=== PATIENT | male | born 1985 | race Caucasian/White ===

== ENCOUNTER 2016-07-04 07:59 | Observation (INO) ==
[2016-07-04] MEDS ORDERED: ONDANSETRON 4 MG/2 ML VIAL IV STA (08:24)
[2016-07-04] MEDS ORDERED: SODIUM CHLORIDE 0.9% 1,000 ML IV STA (08:24)
[2016-07-04] MEDS ORDERED: HYDROmorphone 2 MG/1 ML VIAL IV PRN (08:24)
[2016-07-04] MEDS ORDERED: ONDANSETRON 4 MG/2 ML VIAL ONE ×2 (08:35→11:22)
[2016-07-04] MEDS ORDERED: HYDROmorphone 2 MG/1 ML VIAL ONE (08:35)
[2016-07-04 08:52] LABS: Basophils # 0.1 10*3/uL (0.0-0.2); Basophils % 0.3 % (0.0-0.8); Eosinophils % 0.2 % (0.00-10.9); Hematocrit 52.8 VOL% (42.0-52.0); Hemoglobin 18.8 GM/DL (14.0-18.0); Immature Granulocytes % 0.4 %; Immature Granulocytes Absolute 0.07 #; Lymphocytes # 2.9 10*3/uL (1.4-4.0); Lymphocytes % 15.8 % (21.2-54.2); Mean Corpuscular HGB Conc 35.6 GM/DL (32-36); Mean Corpuscular Hemoglobin 32 PG (27-34); Mean Corpuscular Volume 89.5 FL (87-102); Mean Platelet Volume 9.2 FL (9.6-12.0); Monocytes # 0.9 10*3/uL (0.11-0.8); Monocytes % 4.9 % (1.7-12.7); Neutrophils # 14.2 10*3/uL (1.4-7.4); Neutrophils % 78.4 % (38.7-73.9); Platelet Count 326 T/CUMM (130-400); Red Cell Distribution Width 12.5 % (9.3-17.3); White Blood Count 18.1 T/CUMM (4-12)
--- NOTE | 2016-07-04 09:11 | XRay Report ---
Referring Physician: Ariel Grewal Exam: XR abdomen 2V Date: July 04, 2016 at 9:02 AM Reason: Generalized abdominal pain Comparison: Lumbar spine x-rays January 21, 2014 Findings: There is no evidence of bowel obstruction or free air. Moderate stool is noted within the colon. Surgical clips are again seen within the right lower quadrant. The renal shadows are partially obscured, but no definite renal calculi are identified. No acute osseous process is seen. Impression: No acute abdominal process is identified. PROCEDURE INTERPRETED AT [facility] DEPARTMENT OF RADIOLOGY Final Report Signed by: Dr. Pat Fortune
[2016-07-04 09:49] LABS: Albumin 5.1 G/DL (3.4-5.0); Bilirubin,Total 0.9 MG/DL (0.2-1.0); Calcium 11.2 MG/DL (8.5-10.1); Magnesium 2.3 MG/DL (1.8-2.4); Osmolality,Calculated 290.7 MOS/KG (273-304); Total Protein 9.1 G/DL (6.4-8.3)
[2016-07-04 09:53] LABS: Apearance,Urine CLEAR (Clear); Bilirubin,Urine Negative (Negative); Blood, Urine Negative (Negative); Glucose,Urine (UA) Negative (Negative); Ketones,Urine Negative (Negative); Mucus,Urine Occasional /LPF (Occasional); Nitrite,Urine Negative (Negative); Protein,Urine 30 MG/DL; RBC,Urine 6 /HPF (0-4); Urine Color Yellow (Yellow); Urine Specific Gravity 1.013 (1.001-1.035); Urine Urobilinogen < 2.0 EU/DL (0.2-1.0); WBC,Urine 2 /HPF (0-6)
--- NOTE | 2016-07-04 10:44 | EKG Report ---
Stationary ECG Study [facility] ER Test Date: 07/04/2016 10:38:50 AM Pat Name: REY MOON Department: Room: Gender: M [employer] Lead: KELSIE : 1985 Requested by: Ariel Smith Order Number: [id number] Reading MD: NANDINI VILLALPANDO Intervals [place] Rate: 59 P: 267 ID: [id number] QRS: 129 QRSD: 115 T: 151 QT: 422 QTc: 421 Interpretive Statements JUNCTIONAL RHYTHM INCOMPLETE RIGHT BUNDLE BRANCH BLOCK RIGHT AXIS DEVIATION Electronically Signed On 07-04-16 18:15:27 FLOOR REPRESENTATIVE by NANDINI VILLALPANDO [email or web address]
--- NOTE | 2016-07-04 10:51 | CT Report ---
Referring physician: Ariel Grewal EXAM: CT abdomen and pelvis with contrast DATE: July 04, 2016 COMPARISON: CT chest, abdomen and pelvis January 02, 2014 REASON: Mid abdominal pain, nausea and vomiting TECHNIQUE: Axial images of the abdomen and pelvis were obtained after administration of 100 cc of Omnipaque 350 IV contrast. Coronal and sagittal reformatted images were also provided. Total DLP is 847.9 mGy*cm. FINDINGS: Lower thorax: There is minimal atelectasis at the lung bases. A stable 0.5 cm noncalcified nodule is seen within the right lower lobe adjacent to the major fissure on image 3. The stability suggests a benign process. ABDOMEN: Liver: Unremarkable. Gallbladder and bile ducts: The gallbladder is unremarkable. No biliary duct dilatation is present. Pancreas: Unremarkable. Spleen: The spleen is borderline prominent, measuring 13.6 cm in AP dimension. Adrenals: Unremarkable. Kidneys and ureters: No hydronephrosis or suspicious renal lesion is identified. The ureters are unremarkable as visualized. PELVIS: Bladder: The bladder is poorly distended and difficult to evaluate. Reproductive: Unremarkable as visualized. ABDOMEN AND PELVIS: Bowel: There is no evidence of bowel obstruction. There is mild diffuse gastric wall thickening at the distal stomach/gastric antrum. This could be secondary to poor distention, but other considerations include gastritis. Appendix: The appendix is not identified, but there are no secondary signs of appendicitis. There is also surgical change within the right lower quadrant which may be related to appendectomy. Vasculature: The abdominal aorta is normal in size. Peritoneum/retroperitoneum: No free air or ascites is seen. Lymph nodes: There are a few nonspecific upper normal-sized lymph nodes within the upper abdomen in the gastrohepatic region. One of these lymph nodes on image 36, series 2 measures 0.8 cm in short axis diameter, which is stable. No new suspicious adenopathy is seen. Abdominal/pelvic wall: Unremarkable. Bones: There is minimal chronic posterior wedging of the L5 vertebral body and bilateral pars interarticularis defects at L5. No acute osseous process is seen. IMPRESSION: 1. There is mild diffuse thickening of the gastric wall at the distal stomach/antrum. This could be secondary to poor distention, but gastritis is not excluded. Please correlate with clinical symptoms. 2. Borderline splenomegaly. 3. Bilateral pars interarticularis defects at L5. The CT exam was performed using one or more of the following dose reduction techniques: Automated exposure control and adjustment of the mA and/or kV according to patient size. PROCEDURE INTERPRETED AT [facility] DEPARTMENT OF RADIOLOGY Final Report Signed by: Dr. Pat Fortune
[2016-07-04] MEDS ORDERED: ACETAMINOPHEN 325 MG TABLET PO PRN (11:02)
[2016-07-04] MEDS ORDERED: ZALEPLON 5 MG CAPSULE PO PRN (11:02)
--- NOTE | 2016-07-04 11:10 | Emergency Department Note ---
Axel Martinez Meredith, am scribing for, and in the presence of, Ariel Grewal MD 08:23. Uri Martinez Phillip K, MD, personally performed the services described in this documentation, ascribed by Ana Reyna in my presence, and it is both accurate and complete . Arrival - Arrival Chief Complaint: Nausea/Vomiting/Diarrhea Stated Complaint: abd pain,n/v ED Nursing Triage Note: n/v since 1999 last night with pain in middle of abdomen. vomiting in triage. denies uti s/s. Mode of Arrival: Ambulatory Limitations: No Limitations Source: Patient, Old Records Reviewed, RN Notes Reviewed - History of Present Illness HPI Narrative: Pt is a 30 y/o white male reporting to the ED with c/o nausea and vomiting since 1999 last night. He confirms intermittent mid abdominal pain and diaphoresis but denies any fever or diarrhea. His last bowel movement was 2 days ago. Pt has a history of appendectomy. He is a current everyday smoker and drinks alcohol occasionally. Onset (ago): hour(s) Consistency: intermittent Allergies/Adverse Reactions: Allergies Allergy/AdvReac Type Severity Reaction Status Date / Time Amoxicillin [From Amoxil] Allergy Unknown/Unable Verified 07/04/16 08:12 to obtain Home Medications: Home Medications Medication Instructions Recorded Confirmed Type No Known Home Medications [No 07/04/16 07/04/16 History Known Home Medications] Review of System - Review of System 12 point system: reviewed and no additional remarkable complaints except as stated - Review of System Constitutional: Present: as per HPI, diaphoresis. Absent: fever Gastrointestinal: Present: as per HPI, abdominal pain, nausea, vomiting. Absent : diarrhea Medical,Surgical,& Family Hx - Medical History Cardio: No history of: Hypertension - Surgical History Abdominal Surgeries: Surgical HX of: Appendectomy Patient denies: Splenectomy - Family History Family History: Denies;: Additional Family History - Social History Smoking Status: Current every day smoker Frequency of Alcohol Use: Occasionally Type of Drug Use: None Exam Vital Signs: Vital Signs Temperature 97.2 F L 07/04/16 08:06 Pulse Rate 132 H 07/04/16 08:06 Respiratory Rate 24 07/04/16 08:06 Blood Pressure 171/114 07/04/16 08:06 O2 Sat by Pulse Oximetry 98 07/04/16 08:06 - General General appearance: alert, in no apparent distress - Head Head exam: Present: atraumatic, normocephalic - Eye Eye exam: Present: normal appearance, PERRL, EOMI - ENT ENT exam: Present: mucous membranes moist, normal external ear exam - Neck Neck exam: Present: full ROM, trachea midline. Absent: tenderness, meningismus , lymphadenopathy, thyromegaly - Chest Chest inspection: Present: symmetric chest wall rise. Absent: tenderness, rash - Respiratory Respiratory exam: Present: normal lung sounds bilaterally. Absent: respiratory distress - Cardiovascular Cardiovascular exam: Present: normal rhythm, tachycardia. Absent: murmur - Abdominal Exam Abdominal exam: Present: soft, hypoactive bowel sounds. Absent: distention, tenderness - Extremities Exam Extremities exam: Present: full ROM, normal capillary refill. Absent: tenderness, pedal edema, calf tenderness - Back Exam Back exam: Present: full ROM. Absent: tenderness - Neurological Exam Neurological exam: Present: alert, oriented X3, CN II-XII intact. Absent: motor sensory deficit - Psychiatric Psychiatric exam: Present: normal affect, normal mood - Skin Skin exam: Present: warm, dry, intact, normal color Course Course Narrative: Patient discussed with the hospitalist who will admit for further evaluation. Results - Labs CBC & BMP: 07/04/16 08:44 07/04/16 08:44 Lab Results: I have reviewed the patients labs Labs: Laboratory Tests 07/04/16 08:44 WBC 18.1 H RBC 5.90 H Hgb 18.8 H Hct 52.8 H Plt Count 326 MPV 9.2 L Neut % (Auto) 78.4 H Lymph % (Auto) 15.8 L Neut # (Auto) 14.2 H [place] # (Auto) 0.9 H Laboratory Tests 07/04/16 08:44 Sodium 145 Potassium 4.0 Chloride 100 Carbon Dioxide 32 Anion Gap 17.0 H BUN 15 Creatinine 1.40 H Glucose 137 H Calcium 11.2 H Total Protein 9.1 H Albumin 5.1 H Globulin 4.0 H Laboratory Tests 07/04/16 08:44 Urine pH 8.0 Ur Specific [place] 1.013 Urine Protein 30 Urine Urobilinogen < 2.0 H Urine RBC 6 Urine WBC 2 Urine Mucus Occasional - EKG EKG results: interpreted by VÍCTRO, sinus rhythm - Diagnostic Findings Procedure: Abdominal x-ray: report reviewed by me (No acute abdominal process. ) , CT Abdomen and Pelvis: report reviewed by me (1. There is mild diffuse thickening of the gastric wall at the distal stomach/antrum. This could be secondary to poor distention, but gastritis is not excluded. 2. Borderline splenomegaly. 3. Bilateral pars interarticularis defects at L5. ) Disposition Clinical Impression: Abdominal pain with vomiting, Hypercalcemia Case discussed with: patient, patient's family Disposition: Still a Patient Condition: Guarded Additional Instructions: Admitted to the hospitalist for further evaluation.
[2016-07-04] MEDS: ONDANSETRON 4 MG/2 ML VIAL IV PRN ×2 (11:25→15:43)
[2016-07-04] MEDS ORDERED: SODIUM CHLORIDE 0.9% 1,000 ML IV SCH (11:30)
--- NOTE | 2016-07-04 11:46 | Hospitalist History & Physical ---
<Erika Martinez - Last Filed: 07/04/16 11:39> Assessment and Plan - Time spent with patient Time spent with patient: Greater than 30 minutes (due to assessment, plan and doc) (1) Gastroenteritis Status: Acute Assessment and plan: admit obs NS at 125 Zofran PRN Clear liquids, advance as tolerated Current Visit: Yes (2) Abdominal pain with vomiting Status: Acute Current Visit: Yes (3) Hypercalcemia Status: Acute Current Visit: Yes History of Present Illness Chief complaint: nausea, vomiting, abd cramping History of present illness: Mr. Rodriguez is a 30 year old male who states that he began to have severe nausea and vomiting that started at 8 pm last night. He has been very nauseated and has waves of cramping abdominal pain. He states that he is not diabetic, not hypertensive. He has no chronic medical problems. He has had his appendix removed. Denies any abdominal tenderness to palpation. Last BM was Sunday and was normal. Denies any hematemesis, or melena. Denies any fever. WBC is 18k today. It is noted that his calcium is elevated at 11.2. His H/H is elevated at 18/52. BUN 15, Creat 1.4 GFR 81. Urine is negative at this time. Denies any diarrhea at this time. He will be admitted for observation for gastroenteritis. We will treat with fluids and anti-emetics. He lives at home with his and 4 children. Labs in AM. Further plan and addendum to follow by Dr. Sharlene Glaser. Home Medications Medication Instructions Recorded Confirmed Type No Known Home Medications [No 07/04/16 07/04/16 History Known Home Medications] Allergies Allergy/AdvReac Type Severity Reaction Status Date / Time Amoxicillin [From Amoxil] Allergy Unknown/Unable Verified 07/04/16 08:12 to obtain Medical,Surgical,& Family Hx - Medical History Cardio: No history of: Hypertension - Surgical History Abdominal Surgeries: Surgical HX of: Appendectomy Patient denies: Splenectomy - Family History Family History: Denies;: Additional Family History - Social History Smoking Status: Current every day smoker Frequency of Alcohol Use: Occasionally Type of Drug Use: None Marital Status: Lives With:: Spouse Functional capacity: independent ambulation - Constitutional Constitutional: Absent: chills, fever(s), weakness - EENT Eyes: Absent: blurry vision, diplopia Ears: Absent: decreased hearing, tinnitus Nose, mouth and throat: Absent: dysphagia, headache(s) - Cardiovascular Cardiovascular: Absent: chest pain at rest, dyspnea on exertion - Respiratory Respiratory: Absent: cough, hemoptysis - Gastrointestinal Gastrointestinal: Present: cramping, nausea, vomiting. Absent: melena - Genitourinary Genitourinary: Absent: difficulty urinating, hematuria - Musculoskeletal Musculoskeletal: Absent: back pain, joint swelling - Neurological Neurological: Absent: confusion, dizziness - Psychiatric Psychiatric: Absent: anxiety, confusion, depression - Endocrine Endocrine: Absent: cold intolerance, heat intolerance - Hematologic/Lymphatic Hematologic/Lymphatic: Absent: easy bleeding, easy bruising Exam - Constitutional Vitals: Period Temp Pulse Resp BP Sys/Green Pulse Ox Last 24 Hr 97.2 F 132 24 171/114 98 General appearance: normal weight, no acute distress - Head Head exam: Present: normal inspection, normocephalic - Eye Eye exam: Present: EOMI. Absent: scleral icterus Pupils: Present: ANGELI, normal accommodation - ENT ENT exam: Present: normal exam, normal oropharynx - Neck Neck exam: Present: normal inspection. Absent: lymphadenopathy - Respiratory Respiratory exam: Present: clear to auscultation bilaterally. Absent: accessory muscle use - Cardiovascular Cardiovascular exam: Present: regular rate and rhythm. Absent: carotid bruit - GI/Abdominal GI/Abdominal exam: Present: hypoactive bowel sounds, soft. Absent: tenderness - Extremities Exam Extremities exam: Present: normal inspection. Absent: edema - Back Exam Back exam: Present: normal inspection. Absent: CVA tenderness (L), CVA tenderness (R), muscle spasm - Neurological Exam Neurological exam: Present: alert, oriented X3 - Psychiatric Psychiatric exam: Present: normal affect, normal mood - Skin Skin exam: Present: normal color, warm, dry, intact Results - Labs CBC & BMP: 07/04/16 08:44 07/04/16 08:44 Lab Results: I have reviewed the past 24 hour labs - Diagnostic Findings Procedure: Abdominal x-ray: report reviewed by me (negative for acute process), CT Abdomen and Pelvis: report reviewed by me (possible gastritis. ) <Sharlene Glaser - Last Filed: 07/04/16 13:56> History of Present Illness History of present illness: I've examined patient and verified above findings as dictated by practitioner Erika Martinez. Mr. Rodriguez is a 30 year old male who presented with a day and a half of intractable nausea and vomiting. Associated symptom with some intermittent abdominal cramping he denies any diarrhea there not been any other sick contacts. On presentation to the emergency department. He was found to be hypertensive. He denies any history of hypertension. Patient will be admitted for likely acute infectious gastroenteritis. Will give supportive care with IV fluids and anti-emetics. His blood pressure did respond to IV Dilaudid that was given in the emergency department. Clinically he does appear intravascular volume depleted likely from his intractable vomiting. He also had elevated and his white blood cell count but he is afebrile given his elevation is hemoglobin and hematocrit after likely is all heme concentrated due to his acute gastroenteritis causing intractable vomiting. Results - Labs CBC & BMP: 07/04/16 08:44 07/04/16 08:44
[2016-07-04] MEDS ORDERED: PROMETHAZINE 25 MG/1 ML VIAL ONE (13:05)
[2016-07-04] MEDS ORDERED: PROMETHAZINE 25 MG/1 ML VIAL IM ONE (13:09)
[2016-07-04] MEDS ORDERED: PROMETHAZINE INJ 25 MG in SODIUM CHLORIDE 0.9% 50 ML IV PRN (13:15)
[2016-07-04] MEDS: SODIUM CHLORIDE 0.9% 1,000 ML IV SCH ×3 (13:30→23:50)
[2016-07-04] MEDS: MORPHINE 2 MG/1 ML SYRINGE IV PRN ×2 (15:43→20:26)
[2016-07-04] MEDS ORDERED: ONDANSETRON 4 MG/2 ML VIAL IV PRN (18:44)
[2016-07-04] MEDS ORDERED: chlorproMAZINE 25 MG/1 ML AMP IM PRN (21:22)
[2016-07-05 04:38] LABS: Basophils % 0.2 % (0.0-0.8); Eosinophils % 0.2 % (0.00-10.9); Hematocrit 44.3 VOL% (42.0-52.0); Hemoglobin 15.4 GM/DL (14.0-18.0); Immature Granulocytes % 0.3 %; Immature Granulocytes Absolute 0.05 #; Lymphocytes # 2.9 10*3/uL (1.4-4.0); Lymphocytes % 19.5 % (21.2-54.2); Mean Corpuscular HGB Conc 34.8 GM/DL (32-36); Mean Corpuscular Hemoglobin 31 PG (27-34); Mean Platelet Volume 9.4 FL (9.6-12.0); Monocytes # 1.1 10*3/uL (0.11-0.8); Monocytes % 7.5 % (1.7-12.7); Neutrophils # 10.6 10*3/uL (1.4-7.4); Neutrophils % 72.3 % (38.7-73.9); Platelet Count 233 T/CUMM (130-400); Red Blood Count 4.92 MC/CUMM (3.8-5.5); Red Cell Distribution Width 12.8 % (9.3-17.3); White Blood Count 14.6 T/CUMM (4-12)
[2016-07-05] MEDS: SODIUM CHLORIDE 0.9% 1,000 ML IV SCH (04:51)
[2016-07-05 05:14] LABS: Albumin 3.5 G/DL (3.4-5.0); Bilirubin,Total 2.1 MG/DL (0.2-1.0); Calcium 8.5 MG/DL (8.5-10.1); Potassium 3.3 MMOL/L (3.5-5.1); Total Protein 6.6 G/DL (6.4-8.3)
[2016-07-05] MEDS ORDERED: PANTOPRAZOLE 40 MG VIAL IV SCH (09:00)
[2016-07-05] MEDS ORDERED: POTASSIUM CHLORIDE INJ 10 MEQ in DEXTROSE 5% 1,000 ML IV SCH (09:00)
--- NOTE | 2016-07-05 10:36 | Discharge Summary ---
<Erika aMrtinez - Last Filed: 07/05/16 10:34> Hospital Course - Hospital Course Hospital Course: Mr. Rodriguez was admitted yesterday for observation for gastroenteritis. He was given IVF's, and anti-emetics. He required phenergan, compazine and zofran for nausea, but has much improved at this time. He is denying any nausea at this time and is ready to go home. His labs are stable to improved and he will be discharged home on appropriate medications and follow up. - Time spent with patient Time with patient DS: Greater than 30 minutes (due to plan, doc and med rec.) Diagnosis - Discharge Diagnosis (1) Gastroenteritis Status: Acute (2) Abdominal pain with vomiting Status: Acute (3) Hypercalcemia Status: Acute Discharge Plan - Discharge Data Disposition: Disch To Home/Self Care - Discharge Medications New Ondansetron Odt Tab [Zofran Odt] 4 mg PO Q8H PRN #30 tablet PRN Reason: Nausea/Vomiting - Follow Up or Referral - Forms/Instructions Exam - Constitutional Vitals: Period Temp Pulse Resp BP Sys/Green Pulse Ox Last 24 Hr 98.0 F-99.1 F 59-112 17-20 120-141/71-87 95-100 Discharge Results Procedures and tests throughout hospitalization: Pending Orders 07/04/16 19:05 Quick Strep Panel Stat Labs on day of discharge: Labs from last 24 hours 07/05/16 07/05/16 04:04 04:04 WBC 14.6 H RBC 4.92 Hgb 15.4 D Hct 44.3 MCV 90.0 MCH 31 MCHC 34.8 RDW 12.8 Plt Count 233 D MPV 9.4 L Neut % (Auto) 72.3 Lymph % (Auto) 19.5 L [place] % (Auto) 7.5 Eos % (Auto) 0.2 Baso % (Auto) 0.2 Neut # (Auto) 10.6 H Lymph # (Auto) 2.9 [place] # (Auto) 1.1 H Eos # (Auto) 0.0 Baso # (Auto) 0.0 Immature Gran % 0.3 Nucleated RBC % 0.0 Immature Gran # 0.05 Nucleated RBCs # 0.00 Sodium 150 H Potassium 3.3 L Chloride 111 H Carbon Dioxide 29 Anion Gap 13.3 BUN 16 Creatinine 1.10 GFR Calculation 109 BUN/Creatinine Ratio 14.00 Glucose 96 Calculated Osmolality 298.0 Calcium 8.5 Total Bilirubin 2.10 H AST 24 ALT 20 Alkaline Phosphatase 78 Total Protein 6.6 Albumin 3.5 Globulin 3.1 Albumin/Globulin Ratio 1.1 Preliminary micro results at discharge 07/04/16 19:05 Quick Strep Confirmation Culture - Preliminary Throat No Group A Streptococcus isolated. DS: Provider Date of admission: 07/04/16 11:02 Primary care physician: . No PCP Attending physician on admission: Sharlene Glaser MD Consults: 07/04/16 11:08 Consult to Pharmacy [CONS] Routine Reason for Pharmacy Consult: Adjust Meds Renal Funct Discharging clinician: Erika Martinez NP Expected date of discharge: 07/05/16 <Sharlene Glaser - Last Filed: 07/05/16 10:47> Hospital Course - Hospital Course Hospital Course: It is presumed his symptoms were infectious likely viral. He is doing much better after IV hydration. He has been tolerating clear liquid diet and feels he is ready to go home. Diagnosis - Discharge Diagnosis (1) Abdominal pain with vomiting Status: Resolved (2) Gastroenteritis Status: Resolved Discharge Plan - Discharge Data Condition at Discharge: Stable Discharge Diet: advance to your usual diet Hygiene: no restrictions Contact your physician if you experience:: fever over 101 Exam - Constitutional General appearance: no acute distress - Head Head exam: Present: normocephalic, atraumatic - Eye Eye exam: Present: EOMI Pupils: Present: ANGELI - Respiratory Respiratory exam: Present: clear to auscultation bilaterally - Cardiovascular Cardiovascular exam: Present: regular rate and rhythm - GI/Abdominal GI/Abdominal exam: Present: normal bowel sounds, soft - Extremities Exam Extremities exam: Present: full ROM - Neurological Exam Neurological exam: Present: alert, oriented X3, CN II-XII intact - Psychiatric Psychiatric exam: Present: normal affect, normal mood - Skin Skin exam: Present: warm, intact
[2016-07-05 14:28] VITALS: BP 132/56
== END 2016-07-05 14:15 | disposition home or self-care (01) ==
LOC: N.EDINP 07:59 → N.ED 07:59 → N.3E 12:23
PROVIDERS: ADMIT Family Medicine; ATTEND Family Medicine